=== PATIENT | male | born 1990 | race Caucasian/White ===

== ENCOUNTER 2016-11-30 07:47 | Outpatient (CLI) ==
[2016-09-16 06:48] VITALS: BMI 35.4
[2016-11-30 08:16] LABS: FLU INTERNAL QC INTERNAL QC VALID; RAPID FLU A NEGATIVE (NEGATIVE); RAPID FLU B NEGATIVE (NEGATIVE)
== END 2016-11-30 07:48 | disposition home or self-care (01) ==
LOC: LAB 07:47
PROVIDERS: ATTEND Nurse Practitioner Family
DX: J02.9 Acute pharyngitis, unspecified (principal); R05 Cough; R50.9 Fever, unspecified; R52 Pain, unspecified
CPT/HCPCS: 87651; 87804; 87880

== ENCOUNTER 2017-12-24 15:01 | Emergency (ER) ==
[2017-12-24 15:12] VITALS: BP 137/89; TEMP 98.8; BMI 36.9
--- NOTE | 2017-12-24 16:33 | ED.PDOC ---
General ED Provider: Dr. VONNIE SPANN MD Chief Complaint: Respiratory Complaint Stated Complaint: cough lethargy Time Seen by Physician: 16:30 Mode of Arrival: Walk-In Information Source: Patient Exam Limitations: No limitations Primary Care Provider: SHIVANI POOL Nursing and Triage Documentation Reviewed and Agree: Yes Reviewed sepsis parameters & appropriate labs ordered?: Yes System Inflammatory Response Syndrome: Not Applicable Sepsis Protocol: For patient's 13 years and over: Temp is 96.8 and below OR 101 and greater Pulse >90 BPM Resp >20/minute Acutely Altered Mental Status Are patient's symptoms suggestive of a new infection, such as: -Pneumonia -Skin, Soft Tissue -Endocarditis -UTI -Bone, Joint Infection -Implantable Device -Acute Abdominal Infection -Wound Infection -Meningitis -Blood Stream Catheter Infection -Unknown Respiratory Complaint Exam - Respiratory Complaint/Exam Onset/Duration: 1630 Symptoms Are: Still present Timing: Constant Initial Severity: Mild Current Severity: Moderate Location: Nose, Chest Character: Reports: Non-productive cough Aggravating: Reports: None Alleviating: Reports: None History of Healthcare-Acquired Pneumonia: No Related Surgical History: Reports: None Cardiac Risk Factors: Reports: None Pseudomonas Risk Factors: Reports: None Tuberculosis Risk Factors: Reports: None Status Asthmaticus Risk Factors: Reports: None Home Oxygen Use: No Review of Systems - Review Of Systems Constitutional: Reports: Weakness Eyes: Reports: No symptoms Ears, Nose, Mouth, Throat: Reports: Nose discharge Respiratory: Reports: No symptoms, Cough, Short of air Cardiac: Reports: No symptoms GI: Reports: No symptoms : Reports: No symptoms Musculoskeletal: Reports: No symptoms Skin: Reports: No symptoms Neurological: Reports: No symptoms Endocrine: Reports: No symptoms Hematologic/Lymphatic: Reports: No symptoms All Other Systems: Reviewed and Negative Past Medical History - Past Medical History Endocrine: Reports: None Cardiovascular: Reports: None Respiratory: Reports: None Hematological: Reports: None Gastrointestinal: Reports: None Genitourinary: Reports: None Neuro/Psych: Reports: None Musculoskeletal: Reports: None Cancer: Reports: None - Surgical History General Surgical History: Reports: Orthopedic (RIGHT LATERAL MENISCUS REPAIR ) - Family History Family History: Reports: None - Social History Smoking Status: Never smoker Hx Substance Use: No Alcohol Screening: Occasionally Physical Exam - Physical Exam Appearance: Well-appearing, No pain distress, Well-nourished Ill-appearing: Mild Pain Distress: None Eyes: LIANG, EOMI, Conjunctiva clear ENT: Rhinorrhea Respiratory: Wheezes (blaterally r gretaer thatn L) Cardiovascular: RRR, Pulses normal, No rub, No murmur GI/: Soft, Nontender, No masses, Bowel sounds normal, No Organomegaly Musculoskeletal: Normal strength, ROM intact, No edema, No calf tenderness Skin: Warm, Dry, Normal color Neurological: Sensation intact, Motor intact, Reflexes intact, Cranial nerves intact, Alert, Oriented Psychiatric: Affect appropriate Critical Care Note - Critical Care Note Total Time (mins): 0 Course - Course Vital Signs: Temp Pulse Resp BP Pulse Ox 12/24/17 15:02 98.8 F 72 20 137/89 95 Departure - Departure Time of Disposition: 16:50 Disposition: HOME SELF-CARE Discharge Problem: Bronchitis Condition: Good Pt referred to PMD for follow-up: Yes IPMP verified?: No Allergies/Adverse Reactions: Allergies No Known Allergies Allergy (Verified 12/24/17 15:12) Home Medications: Ambulatory Orders Ibuprofen 400 mg PO Q4H PRN 09/16/16 Acetaminophen [Tylenol] 325 mg PO PRN 11/30/16 Pediatric Multivitamin No.101 [Gummy] 1 each PO DAILY 12/24/17
== END 2017-12-24 16:54 | disposition home or self-care (01) ==
LOC: ED 15:01
DX: J40 Bronchitis, not specified as acute or chronic (principal)
CPT/HCPCS: 99282